=== PATIENT | male | born 1995 | race Caucasian/White ===

== ENCOUNTER 2017-08-23 15:41 | Emergency (ER) | payer MEDICAID ==
[2017-08-23 21:39] VITALS: BP 126/86
--- NOTE | 2017-08-23 21:45 | Emergency Department Report ---
- General Chief Complaint: Upper Respiratory Infection Stated Complaint: FLU LIKE SYMPTOMS Time Seen by Provider: 08/23/17 21:15 Source: patient Mode of arrival: Ambulatory Limitations: No Limitations - History of Present Illness Initial Comments: 22-year-old male past medical history recurrent strep throat presents with complaint of earache headache bodyaches and nonproductive cough for 1 day. Patient states he has 2 family members at home which tested positive for flu and are currently being treated for the flu. Patient is awake alert and oriented 3 not in acute distress. States he may have felt nauseous earlier but does not feel nauseous now. States he is having primarily bodyaches. Denies chest pain or shortness of breath at rest. MD Complaint: fever, cough, sore throat Onset/Timin -: days(s) Severity: moderate Associated Symptoms: fever, myalgias, rhinorrhea, cough Treatments Prior to Arrival: Acetaminophen - Related Data Previous Rx's Medication Instructions Recorded Last Taken Type Azithromycin [Zithromax Z-RADHA] 500 mg PO ONCE #6 tablet 04/14/13 Unknown Rx Prednisone 20 mg PO BID #4 tablet 04/14/13 Unknown Rx Amoxicillin/Potassium Clav 1 each PO BID #20 tablet 08/23/17 Unknown Rx [Augmentin 875-125 Tablet] Ibuprofen [Motrin] 800 mg PO Q8HR PRN #30 tablet 08/23/17 Unknown Rx Ondansetron [Zofran Odt] 4 mg PO Q8H PRN #12 tab.rapdis 08/23/17 Unknown Rx Oseltamivir [Tamiflu] 75 mg PO BID #10 cap 08/23/17 Unknown Rx Phenylephrine/Dm/Acetaminop/GG 10 ml PO Q8H PRN #1 liquid 08/23/17 Unknown Rx [Mucinex Eaca-Ylr-Ihmelqtwhw Lq] Allergies Allergy/AdvReac Type Severity Reaction Status Date / Time No Known Allergies Allergy Unverified 04/14/13 13:53 ED Review of Systems ROS: Stated complaint: FLU LIKE SYMPTOMS Other details as noted in HPI Constitutional: fever, malaise. denies: chills Eyes: denies: eye pain, eye discharge, vision change ENT: ear pain. denies: throat pain Respiratory: denies: cough, shortness of breath, wheezing Cardiovascular: denies: chest pain, palpitations Endocrine: no symptoms reported Gastrointestinal: denies: abdominal pain, nausea, diarrhea Genitourinary: denies: urgency, dysuria Musculoskeletal: denies: back pain, joint swelling, arthralgia Skin: denies: rash, lesions Neurological: denies: headache, weakness, paresthesias Psychiatric: denies: anxiety, depression Hematological/Lymphatic: denies: easy bleeding, easy bruising ED Past Medical Hx - Past Medical History Additional medical history: Frequent strep throat infections. - Surgical History Past Surgical History?: No - Social History Smoking Status: Never Smoker Substance Use Type: None - Medications Home Medications: Home Medications Medication Instructions Recorded Confirmed Last Taken Type Azithromycin [Zithromax Z-RADHA] 500 mg PO ONCE #6 tablet 04/14/13 Unknown Rx Prednisone 20 mg PO BID #4 tablet 04/14/13 Unknown Rx Amoxicillin/Potassium Clav 1 each PO BID #20 tablet 08/23/17 Unknown Rx [Augmentin 875-125 Tablet] Ibuprofen [Motrin] 800 mg PO Q8HR PRN #30 tablet 08/23/17 Unknown Rx Ondansetron [Zofran Odt] 4 mg PO Q8H PRN #12 tab.rapdis 08/23/17 Unknown Rx Oseltamivir [Tamiflu] 75 mg PO BID #10 cap 08/23/17 Unknown Rx Phenylephrine/Dm/Acetaminop/GG 10 ml PO Q8H PRN #1 liquid 08/23/17 Unknown Rx [Mucinex Eijl-Mel-Ykugjpxqoq Lq] ED Physical Exam - General Limitations: No Limitations General appearance: alert, in no apparent distress - Head Head exam: Present: atraumatic, normocephalic - Eye Eye exam: Present: normal appearance, PERRL, EOMI - ENT ENT exam: Present: mucous membranes moist - Expanded ENT Exam Expanded TM/Canal exam: Erythema: Left TM (some erythema left TM) - Neck Neck exam: Present: normal inspection - Respiratory Respiratory exam: Present: normal lung sounds bilaterally. Absent: respiratory distress - Cardiovascular Cardiovascular Exam: Present: regular rate, normal rhythm. Absent: systolic murmur, diastolic murmur, rubs, gallop - GI/Abdominal GI/Abdominal exam: Present: soft, normal bowel sounds - Rectal Rectal exam: Present: deferred - Extremities Exam Extremities exam: Present: normal inspection - Back Exam Back exam: Present: normal inspection - Neurological Exam Neurological exam: Present: alert, oriented X3 - Psychiatric Psychiatric exam: Present: normal affect, normal mood - Skin Skin exam: Present: warm, dry, intact, normal color. Absent: rash ED Course Vital Signs 08/23/17 08/23/17 16:13 21:39 Temperature 98 F 98.7 F Pulse Rate 75 69 Respiratory 18 18 Rate Blood Pressure 147/83 Blood Pressure 147/83 126/86 [Right] O2 Sat by Pulse 98 100 Oximetry ED Medical Decision Making - Medical Decision Making A/P: Flulike illness, possible otitis left ear 1-treat empirically with Augmentin for otitis media 2-Patient tolerating by mouth fluid and food without difficulty 3-Motrin when necessary, Mucinex when necessary, Zofran when necessary I offered patient Tamiflu. Patient expressed some interest in taking it after discussion of side effects benefits and risks of taking Tamiflu. I educated patient and provided him with literature on fluid management https:// www.[employer]/contents/zrpqaikzk-wtlsjcgn-dmx-rsspqyfid-qansfo-age-basics/ print?source=see_link 4- I advised patient to follow up with primary care or to return to the ED for any inability to tolerate by mouth fluid or food persistent nausea and vomiting severe fevers and chills or fevers persistently above 100.4 despite antipyretic use, severe lethargy. Patient stated he understood my instructions. I advised patient to remain well-hydrated. Critical care attestation.: If time is entered above; I have spent that time in minutes in the direct care of this critically ill patient, excluding procedure time. ED Disposition Clinical Impression: Flu-like symptoms Otitis media Qualifiers: Otitis media type: suppurative Chronicity: acute Laterality: left Recurrence: not specified as recurrent Spontaneous tympanic membrane rupture: without spontaneous rupture Qualified Code(s): H66.002 - Acute suppurative otitis media without spontaneous rupture of ear drum, left ear Disposition: DC-01 TO HOME OR SELFCARE Is pt being admited?: No Does the pt Need Aspirin: No Condition: Stable Instructions: Influenza (ED), Viral Syndrome (ED), Otitis Media (ED) Prescriptions: Amoxicillin/Potassium Clav [Augmentin 875-125 Tablet] 1 each PO BID #20 tablet Ibuprofen [Motrin] 800 mg PO Q8HR PRN #30 tablet PRN Reason: Fever Ondansetron [Zofran Odt] 4 mg PO Q8H PRN #12 tab.rapdis PRN Reason: Nausea Oseltamivir [Tamiflu] 75 mg PO BID #10 cap Phenylephrine/Dm/Acetaminop/GG [Mucinex Xozt-Ngy-Gofofvkplr Lq] 10 ml PO Q8H PRN #1 liquid PRN Reason: Cough Referrals: [facility] [Outside] - 3-5 Days [facility] [Outside] - 3-5 Days Forms: Work/School Release Form(ED), Accompanied Note Time of Disposition: 21:44
== END 2017-08-23 21:55 | disposition home or self-care (01) ==
LOC: ED 15:41
DX: H66.002 Acute suppurative otitis media without spontaneous rupture of ear drum, left ear (principal)
CPT/HCPCS: 99282